=== PATIENT | female | born 1955 | race Caucasian/White ===

== ENCOUNTER 2021-05-28 09:16 | Day surgery (SDC) | payer OTHER ==
[~2021-05-28] VITALS: Ht 158 cm; Wt 91.0 kg
[~2021-05-28 09:16] MED LIST: ATORVASTATIN CA20 MG PO; BRIN20TA PO; BUSPIRONE HCL15 M1 PO; DICLOFENAC SODI75 MG PO; HCTZ12.5 MG PO; LISINOPRIL20 MG PO; MONTELUKAST SOD10 MG PO; TIMOLOL MALEATE15 M1 EYEBOTH; VENTOLIN HFA IN18 GM INH
[2021-05-28] MEDS ORDERED: SYMBICORT 80-10.2 GM IN (11:17)
[2021-05-29 06:24] LABS: BASOPHIL 0.1 % (0-2); EOSINOPHIL 0 % (0-7); HCT 32.4 % (37.0-47.0); HGB 10.9 g/dl (12.5-16.0); LYMPHOCYTE 10.8 % (15-48); MCH 30.8 pg (25.0-31.0); MCHC 33.6 g/dL (32.0-36.0); MCV 91.5 fL (78.0-100.0); MONOCYTE 4.2 % (0-12); MPV 10.7 fL (6.0-9.5); NEUTROPHIL 83.8 % (41-80); NRBC 0; PLT 254 K/uL (150-400); RBC 3.54 M/uL (4.20-5.40); RDW 12.7 % (11.5-14.0); WBC 13.4 K/uL (4.0-10.5)
[2021-05-29 06:52] LABS: BUN/CREAT RATIO (CALC) 35.5 RATIO; CREATININE 0.62 mg/dL (0.51-0.95); POTASSIUM 3.8 mmol/L (3.5-5.1)
[2021-05-29] MEDS ORDERED: FEOSOL325 MG PO (08:54)
[2021-05-29] MEDS ORDERED: XARELTO10 MG PO (08:54)
[2021-05-29] MEDS ORDERED: OXYCODONE-ACET1 EAC1 PO (08:54)
== END 2021-05-29 13:30 | disposition home or self-care (01) ==
LOC: FAS 09:16 → FMS 14:21 → FAS 05-29 13:30
PROVIDERS: Legal Medicine
DX: M17.0 Bilateral primary osteoarthritis of knee (principal); M25.762 Osteophyte, left knee; M67.262 Synovial hypertrophy, not elsewhere classified, left lower leg; E11.9 Type 2 diabetes mellitus without complications; I10 Essential (primary) hypertension; Z90.710 Acquired absence of both cervix and uterus
CPT/HCPCS: 36415; 73560; 80048; 85025; 86850; 86900; 86901; 94010; 94762; 97162; 97165; 97530-GP; 97535; C1713; C1776; J0171; J0697; J1100; J1170; J1885; J2001; J2250; J2270; J2405; J2704; J2795; J3010; J7120